=== PATIENT | female | born 1990 | race Caucasian/White ===

== ENCOUNTER 2019-08-28 21:25 | Emergency (ER) | payer OTHER ==
[2019-08-28 21:33] VITALS: BP 126/84
[2019-08-28 22:19] LABS: ABS Basophils 0.1 10^3/ul (0-0.2); ABS Eosinophils 0.1 10^3/ul (0-0.6); ABS Monocytes 0.9 10^3/ul (0-0.8); ABS Neutrophils 7.8 10^3/ul (1.5-7.7); Eosinophil % 0.8 %; Hematocrit 42 % (35-47); Hemoglobin 14.3 g/dL (12.0-16.0); Lymphocyte % 31.2 %; Mean Corpuscular HGB Conc 34 g/dL (31-36); Mean Corpuscular Hemoglobin 31 pg (27-31); Mean Corpuscular Volume 92 fL (80-97); Mean Platelet Volume 7.6 fL (7.4-10.4); Nucleated Red Blood Cells % 0.1; Platelet Count 301 10^3/uL (150-450); Red Blood Count 4.58 10^6 /uL (3.70-4.87); Red Cell Distribution Width 13 % (10-15); White Blood Count 12.9 10^3/uL (3.5-10.8)
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
[2019-08-28 22:36] LABS: ALT 9 U/L (7-52); AST 12 U/L (13-39); Albumin 4.4 g/dL (3.2-5.2); Albumin/Globulin Ratio 1.5 (1-3); Alkaline Phosphatase 56 U/L (34-104); Anion Gap 9 mmol/L (2-11); BUN/Creatinine Ratio 13.2 (8-20); Blood Urea Nitrogen 9 mg/dL (6-24); CO2 Carbon Dioxide 23 mmol/L (22-32); Chloride 104 mmol/L (101-111); EGFR African American 124.7 (>60); Glucose 116 mg/dL (70-100); Potassium 3.4 mmol/L (3.5-5.0); Sodium 136 mmol/L (135-145); Total Protein 7.4 g/dL (6.4-8.9)
[2019-08-28 22:41] LABS: Urine Appearance Cloudy; Urine Bacteria Absent (Absent); Urine Bilirubin Negative (Negative); Urine Blood Negative (Negative); Urine Color Yellow; Urine Glucose Negative (Negative); Urine Ketones Negative (Negative); Urine Nitrite Negative (Negative); Urine Protein Negative (Negative); Urine Red Blood Cell Absent (Absent); Urine Specific Gravity 1.026 (1.010-1.030); Urine Squamous Epithelial Cell Present (Absent); Urine Urobilinogen Negative (Negative); Urine White Blood Cell Trace(0-5/hpf) (Absent)
[2019-08-28 22:47] LABS: Acetaminophen < 15 mcg/mL; Alcohol < 10 mg/dL (<10); Salicylate < 2.50 mg/dL (<30)
[2019-08-28 22:53] LABS: Urine Benzodiazepine Screen Presumptive Positive (None Detect); Urine Opiates Screen None Detected (None Detect)
[2019-08-28 23:03] LABS: TSH (Thyroid Stimulating Horm) 6.76 mcIU/mL (0.34-5.60)
== END 2019-08-29 03:06 | disposition home or self-care (01) ==
LOC: ED 21:25
DX: F32.9 Major depressive disorder, single episode, unspecified (principal); Z79.899 Other long term (current) drug therapy
CPT/HCPCS: 36415; 80053; 80307; 80320; 80329; 81003; 81015; 84443; 85025; 87086; 99283; G0480

== ENCOUNTER 2019-08-29 19:25 | Emergency (ER) | payer OTHER ==
[2019-08-29 20:08] LABS: ABS Eosinophils 0.1 10^3/ul (0-0.6); ABS Lymphocytes 3.9 10^3/ul (1.0-4.8); ABS Monocytes 0.8 10^3/ul (0-0.8); ABS Neutrophils 4.9 10^3/ul (1.5-7.7); Eosinophil % 1.3 %; Hematocrit 43 % (35-47); Hemoglobin 14.6 g/dL (12.0-16.0); Lymphocyte % 40.2 %; Mean Corpuscular HGB Conc 34 g/dL (31-36); Mean Corpuscular Hemoglobin 31 pg (27-31); Mean Corpuscular Volume 92 fL (80-97); Mean Platelet Volume 7.6 fL (7.4-10.4); Nucleated Red Blood Cells % 0.1; Platelet Count 308 10^3/uL (150-450); Red Blood Count 4.64 10^6 /uL (3.70-4.87); Red Cell Distribution Width 13 % (10-15); White Blood Count 9.8 10^3/uL (3.5-10.8)
[2019-08-29 20:25] LABS: ALT 9 U/L (7-52); AST 12 U/L (13-39); Albumin 4.4 g/dL (3.2-5.2); Albumin/Globulin Ratio 1.5 (1-3); Alkaline Phosphatase 56 U/L (34-104); Anion Gap 6 mmol/L (2-11); BUN/Creatinine Ratio 12.2 (8-20); Blood Urea Nitrogen 9 mg/dL (6-24); CO2 Carbon Dioxide 28 mmol/L (22-32); Calcium 9.2 mg/dL (8.6-10.3); Chloride 105 mmol/L (101-111); EGFR African American 113.1 (>60); EGFR Non-African American 93.5 (>60); Glucose 106 mg/dL (70-100); Sodium 139 mmol/L (135-145); Total Protein 7.4 g/dL (6.4-8.9)
[2019-08-29 20:32] LABS: HCG Pregnancy < 0.60 mIU/mL
[2019-08-29 20:45] LABS: Acetaminophen < 15 mcg/mL; Alcohol < 10 mg/dL (<10); Salicylate < 2.50 mg/dL (<30)
[2019-08-29 21:02] LABS: TSH (Thyroid Stimulating Horm) 5.09 mcIU/mL (0.34-5.60)
[2019-08-30 03:00] VITALS: BP 110/67
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
== END 2019-08-30 02:58 | disposition home or self-care (01) ==
LOC: ED 19:25
DX: F32.9 Major depressive disorder, single episode, unspecified (principal); F43.20 Adjustment disorder, unspecified; Z79.899 Other long term (current) drug therapy
CPT/HCPCS: 36415; 80053; 80320; 80329; 84443; 84702; 85025; 99285; G0480

== ENCOUNTER 2019-08-31 12:04 | Inpatient (IN) | payer OTHER ==
--- NOTE | 2019-08-31 12:24 | ED ---
Psychiatric Complaint - HPI Summary HPI Summary: Patient is a 29 y/o F presenting [facility] with [place] for depression. She states that she was evaluated at [facility] two days ago for similar issues and was discharged to home the same day. She was evaluated by her psychiatrist today who recommended that the patient come to [facility] for MHE and possible admission. Patient endorses feelings of worthlessness and hopelessness. She reports that she would not actively attempt to by suicide by states, "Let's just say that if a car happened to not brake, I would not be too sorry". Patient notes that she sleeps 14-15 hours a day and has involuntarily lost around 15 lbs since March. Patient is on Lexapro, Levothyroxine, and Xanax. She has not missed any doses of her medications. Mother is concerned that the patient's TSH is high. Patient does not report any fever, chills, erythema of eyes, sore throat, CP, SOB, cough, abdominal pain, N/V, dysuria, hematuria, myalgia, edema , rash, and dizziness. On triage, pain is rated 0/10, nothing is noted to aggravate Sx, nothing is noted to alleviate Sx. Home medications and allergies are reviewed. - History Of Current Complaint Chief Complaint: EDMentalHealth Time Seen by Provider: 08/31/19 12:17 Hx Obtained From: Patient Onset/Duration: Still Present Timing: Constant Severity Currently: None - pain denied Character: Depressed Aggravating Factor(s): Nothing Alleviating Factor(s): Nothing Associated Signs And Symptoms: Positive: Sleep Disturbance - Allergies/Home Medications Allergies/Adverse Reactions: Allergies Allergy/AdvReac Type Severity Reaction Status Date / Time No Known Allergies Allergy Verified 08/28/19 21:33 PMH/Surg Hx/FS Hx/Imm Hx Endocrine/Hematology History: Reports: Hx Thyroid Disease Denies: Hx Anticoagulant Therapy Respiratory History: Denies: Hx Asthma Sensory History: Denies: Hx Legally Blind, Hx Deafness Opthamlomology History: Denies: Hx Legally Blind Psychiatric History: Denies: Hx Eating Disorder, Hx of Violent Episodes Against Others Infectious Disease History: No Infectious Disease History: Denies: Traveled Outside the [place] in Last 30 Days - Family History Known Family History: Positive: Other - no FMHx of depression - Social History Alcohol Use: Rare Hx Substance Use: No Substance Use Type: Reports: None Hx Tobacco Use: No Smoking Status (MU): Never Smoked Tobacco Review of Systems Constitutional: Other - positive - sleeping 14-15 hours daily, involuntary weight loss Negative: Fever, Chills Negative: Erythema Negative: Sore Throat Negative: Chest Pain Negative: Shortness Of Breath, Cough Negative: Abdominal Pain, Vomiting, Nausea Negative: dysuria, hematuria Negative: Myalgia, Edema Negative: Rash Neurological: Other - negative - dizziness Positive: Depressed All Other Systems Reviewed And Are Negative: Yes Physical Exam - Summary Physical Exam Summary: Constitutional: Well-developed, Well-nourished, Alert. (-) Distressed Skin: Warm, Dry HENT: Normocephalic; Atraumatic Eyes: Conjunctiva normal Neck: Musculoskeletal ROM normal neck. (-) JVD, (-) Stridor, (-) Tracheal deviation Cardio: Rhythm regular, rate normal, Heart sounds normal; Intact distal pulses; The pedal pulses are 2+ and symmetric. Radial pulses are 2+ and symmetric. (-) Murmur Pulmonary/Chest wall: Effort normal. (-) Respiratory distress, (-) Wheezes, (-) Rales Abd: Soft, (-) tenderness, (-) Distension, (-) Guarding, (-) Rebound Musculoskeletal: (-) Edema Lymph: (-) Cervical adenopathy Neuro: Alert, Oriented x3 Psych: Flat Affect. Triage Information Reviewed: Yes Vital Signs On Initial Exam: Initial Vitals Temp Pulse Resp BP Pulse Ox 98.6 F 76 16 121/80 98 08/31/19 12:11 08/31/19 12:11 08/31/19 12:11 08/31/19 12:11 08/31/19 12:11 Vital Signs Reviewed: Yes Diagnostics - Vital Signs Vital Signs Temp Pulse Resp BP Pulse Ox 08/31/19 12:11 98.6 F 76 16 121/80 98 - Laboratory Result Diagrams: 08/31/19 12:37 08/31/19 12:37 Lab Statement: Any lab studies that have been ordered have been reviewed, and results considered in the medical decision making process. Course/Dx - Course Course Of Treatment: Patient is a 29 y/o F presenting to [facility] with mother for depression. She states that she was evaluated at [facility] two days ago for similar issues and was discharged to home the same day. She was evaluated by her psychiatrist today who recommended that the patient come to [facility] for MHE and possible admission. Patient endorses feelings of worthlessness and hopelessness. She reports that she would not actively attempt to by suicide by states, "Let's just say that if a car happened to not brake, I would not be too sorry". Patient notes that she sleeps 14-15 hours a day and has involuntarily lost around 15 lbs since March. Patient is on Lexapro, Levothyroxine, and Xanax. She has not missed any doses of her medications. Mother is concerned that the patient's TSH is high. Flat affect is noted on physical exam. Bloodwork was obtained. Abnormal values include MCH 32, Free T4 1.15. TSH was 2.39. UA showed 3+ blood, trace WBC, 2+ RBC, and squamous epith cells present. Urine tox showed presumptive positive for benzodiazepines. Patient was medically cleared for MHE. worker Emely reports that the patient' s case had been reviewed by Dr. Starks, patient will be admitted to [facility] under 939 status. - Differential Dx/Clinical Impression Provider Diagnosis: Depressive disorder - Physician Notifications Discussed Care Of Patient With: Sunday Starks Time Discussed With Above Provider: 16:48 Instructed by Provider To: Other - worker Emely reports that the patient's case had been reviewed by Dr. Starks, patient will be admitted to [facility] under 939 status. Discharge ED - Sign-Out/Discharge Documenting (check all that apply): Patient Departure - admit All imaging exams completed and their final reports reviewed: No Studies Patient Received Moderate/Deep Sedation with Procedure: No - Discharge Plan Condition: Stable Disposition: PS[facility]CHIATRIC FACILITY-[facility] - Attestation Statements Document Initiated by Scribe: Yes Documenting Scribe: BABATUNDE ESPARZA Provider For Whom Scribe is Documenting (Include Credential): SYDNEE SEE MD Scribe Attestation: BABATUNDE [place], scribed for SYDNEE SEE MD on 08/31/19 at 1753. Status of Scribe Document: Ready
[2019-08-31 12:46] LABS: ABS Basophils 0.1 10^3/ul (0-0.2); ABS Eosinophils 0.1 10^3/ul (0-0.6); ABS Lymphocytes 2.2 10^3/ul (1.0-4.8); ABS Monocytes 0.6 10^3/ul (0-0.8); ABS Neutrophils 5.4 10^3/ul (1.5-7.7); Eosinophil % 1.3 %; Hematocrit 42 % (35-47); Hemoglobin 14.3 g/dL (12.0-16.0); Lymphocyte % 26.5 %; Mean Corpuscular HGB Conc 34 g/dL (31-36); Mean Corpuscular Hemoglobin 32 pg (27-31); Mean Corpuscular Volume 93 fL (80-97); Mean Platelet Volume 7.6 fL (7.4-10.4); Platelet Count 307 10^3/uL (150-450); Red Blood Count 4.48 10^6 /uL (3.70-4.87); Red Cell Distribution Width 13 % (10-15); White Blood Count 8.3 10^3/uL (3.5-10.8)
[2019-08-31 12:55] LABS: Urine Appearance Cloudy; Urine Bacteria Absent (Absent); Urine Bilirubin Negative (Negative); Urine Blood 3+ (Negative); Urine Color Yellow; Urine Glucose Negative (Negative); Urine Ketones Negative (Negative); Urine Nitrite Negative (Negative); Urine Protein Negative (Negative); Urine Red Blood Cell 2+(6-10/hpf) (Absent); Urine Squamous Epithelial Cell Present (Absent); Urine Urobilinogen Negative (Negative); Urine White Blood Cell Trace(0-5/hpf) (Absent)
[2019-08-31 13:05] LABS: ALT 10 U/L (7-52); AST 17 U/L (13-39); Albumin 4.5 g/dL (3.2-5.2); Albumin/Globulin Ratio 1.6 (1-3); Alkaline Phosphatase 56 U/L (34-104); Anion Gap 4 mmol/L (2-11); BUN/Creatinine Ratio 14.7 (8-20); Blood Urea Nitrogen 11 mg/dL (6-24); CO2 Carbon Dioxide 29 mmol/L (22-32); Calcium 9.2 mg/dL (8.6-10.3); Chloride 102 mmol/L (101-111); EGFR African American 111.3 (>60); Globulin 2.8 g/dL (2-4); Glucose 100 mg/dL (70-100); Sodium 135 mmol/L (135-145); Total Protein 7.3 g/dL (6.4-8.9)
[2019-08-31 13:34] LABS: Acetaminophen < 15 mcg/mL; Alcohol < 10 mg/dL (<10); Salicylate < 2.50 mg/dL (<30)
[2019-08-31 13:49] LABS: TSH (Thyroid Stimulating Horm) 2.39 mcIU/mL (0.34-5.60)
[2019-08-31 13:51] LABS: Free T4 1.15 ng/dL (0.61-1.12)
[2019-08-31 14:17] LABS: Urine Benzodiazepine Screen Presumptive Positive (None Detect); Urine Opiates Screen None Detected (None Detect)
[2019-08-31] MEDS ORDERED: Acetaminophen TAB* 325 MG PO PRN (15:46)
[2019-08-31] MEDS ORDERED: Al Hydrox/Mg Hydrox/Simet LIQ* 30 ML UDC PO PRN (15:46)
[2019-08-31] MEDS ORDERED: chlorproMAZINE TAB* 50 MG PO PRN (15:48)
[2019-09-01 08:19] LABS: HDL Cholesterol 36.2 mg/dL
[2019-09-01] MEDS: Levothyroxine TAB* 112 MCG TAB PO SCH (08:59)
[2019-09-01] MEDS ORDERED: Influenza VAC *QUAD* 2019-20* 0.5 ML SYRINGE IM ONE (09:00)
[2019-09-01] MEDS ORDERED: Escitalopram * 20 MG TABLET PO SCH (09:00)
--- NOTE | 2019-09-01 11:14 | HP ---
H&P (Free Text) History and Physical: Justification for admission: Immediate Safety. CC " I can not believe she would do this to me" The patient was brought to [facility] after expressing suicidal ideation to her mental health provider. Denied access to firearms or stockpiles of medications. She reported having adequate sleep and diminished appetite with 40lbs weight loss. The patient denied homicidal ideation intent or plan. The patient denied auditory and/ or visual hallucinations. She reported excessively picking at her skin to the point of making scars. She expressed that is something ended her life that she would be happy and gave the example of being hit by a car. She reported feeling depressed since her and her in March. She reported hanging out with a friend who turned on her and accused her of sexual harassment and stalking. She reported that [facility] is failing to investigate any warrant to her accusers claims. 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 MDD Reported feeling depressed with diminished interests which were found to be enjoyable in the past. Reported having crying spells , feeling empty inside, feelings of hopelessness , and worthlessness. 40lbs unintentional weight loss and diminished appetite. She reported thoughts that she would be better off . Anxiety Denied having symptoms of anxiety such as having times where heart feels that it is beating out of chest , sweaty palms, or shallow breathing. Denied having uncomfortable or intrusive thoughts. Denied feeling restless, high strung, or worrying too much most of the time. Bipolar Denied symptoms of radha such as having many ideas at once. Denied increased talkativeness where no one can interrupt. Denied feeling irritable most of the time while having an persistent abundance of energy most of the day without the use of energy drinks, stimulants, or recreational drug use. Denied an increase in intensity in goal directed activities. Denied having the decreased need to sleep for days , having prolonged elevated mood , or feeling on top of the world. Denied impulsive risky sexual encounters. Denied spending money recklessly , going on spending sprees wiping out savings. Denied impulsively traveling out of town or country, having super sorensen, and unrealistic wealth or fame. Psychosis Does not endorse hearing things that other people do not hear or seeing things other people do not see. Denied feeling that TV is making references. Denied feeling that people are spying , following , or reading their thoughts. Phobias: Patient denied having excessive fear of a particular thing or situation. Eating disorders: Patient denied having excessive eating habits or feelings of guilt after eating. Denied repeated episodes of self induced vomiting after eating. PTSD Denied flashbacks, nightmares and avoidance of a prior traumatic event. PAST PSYCHIATRIC HISTORY: Prior Diagnosis : Depression History of past Psychiatric Hospitalizations: No prior psychiatric admission. History of past suicide/homicide attempts : Denied past suicide attempts or self injurious behaviors. No history of violence. Outpatient follow-up: Emily Landa NP Medications: Past trials of medications include lexapro 20mg daily for depression. Guardianship: None. FAMILY HISTORY: - Suicide: Denied family history of suicide. - Mental illness: Denied a history of mental health in immediate family members. - Substance abuse: Denied substance abuse among family members. SUBSTANCE ABUSE HISTORY: Denied using alcohol, tobacco, heroin cocaine or other illicit substances. Denied abusing pills for recreational use. Denied past Substance abuse treatment. SOCIAL HISTORY: - Denied a history of childhood physical and or sexual abuse Born in [facility] and mostly raised by her mother. 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 No history of special education. - Living situation: Currently lives in [facility] - Relationship: and has no children. - Legal history: Denied - service history: Denied PAST MEDICAL HISTORY: Graves disease with past radiation treatment of her thyroid. - Allergies: Denied drug or other allergies. Physical Exam: Please see ED note Mental Status Exam on Admission APPEARANCE : 29 year old transgender male to female ppears stated age. Patient appears disheveled with poor hygiene and grooming. BEHAVIOR: Cooperative , calm EYE CONTACT: Fair PSYCHOMOTOR ACTIVITY: No psychomotor agitation or retardation. MOVEMENTS: No abnormal movements observed. SPEECH : Normal rate, rhythm, volume and tone. MOOD : "Upset " AFFECT : Type is depressed, Range is blunted Mood Congruent THOUGHT PROCESS: Formulated and organized in a logical, linear goal directed manner. Some perseveration THOUGHT CONTENT: preoccupation about being accused of sexual harassment PERCEPTION: No current auditory or visual hallucinations. Doesnt appear to be responding to internal cues. No evidence of depersonalization , de-realization, or illusions SUICIDALITY + suicidal ideation HOMICIDALITY Denied homicidal ideation, intent or plan. Insight/judgment: Poor insight and judgment ORIENTATION: Oriented to self, location, and time. Diagnosis on Admission: Major depressive disorder, severe. Excoriation Disorder. Assessment: 29 year old transgender male to female with history of depression came to the hospital with suicidal ideation following a incident at school and was admitted to the BSU at [facility]. Plan #Admit to BSU, Q15 minute observation. Start regular diet. Encourage participation in activities on the milieu. #Patient evaluated in ED and was determined by the emergency room Physician to be medically fit for admission to the BSU. # Justification for Admission: For immediate safety per outlined in the [place] Mental Hygiene Code. # The patient requires psychiatric inpatient admission at this time to assure safety, receive treatment and work toward stabilization. # Labs ordered: CBC, CMP, UDS, TSH, HBA1c, TSH, Toxicology screen, Urine analysis, and lipid profile. # Obtain collateral information once release is signed. # Collaboration with Sales Representative Bharati Boogie # Increase lexapro to 30mg daily # Start naltrexone 50mg daily for skin picking. Patient not on opiates. # Patient signed release for [employer] as well as to have permission to contact administration in regards to title 9 case. #Goals before discharge include: To eliminate/ reduce suicidal ideation Tentative Discharge: Pending psychiatric stabilization The risks, benefits, and alternative treatment options were discussed as well as the risks of refusing treatment. After this discussion and an acknowledgement of this understanding was made. A risk/ benefit assessment of treatment was considered and discussed with the patient. When comparing the risks of treatment with the dangers of not receiving treatment, the benefits of treatment outweigh the treatment risks at this time. Risks of allergy, suicidal ideation, behavioral changes, dystonia, rashes, electrolyte imbalances, movement disorders, cardiac conduction changes, serotonin syndrome, metabolic risks were among some of the risks discussed. Sodium 135 mmol/L (135-145) 08/31/19 12:37 Potassium 4.0 mmol/L (3.5-5.0) 08/31/19 12:37 BUN 11 mg/dL (6-24) 08/31/19 12:37 Creatinine 0.75 mg/dL (0.51-0.95) 08/31/19 12:37 Hemoglobin A1c 5.4 % (4.0-5.6) 09/01/19 07:27 Calcium 9.2 mg/dL (8.6-10.3) 08/31/19 12:37 AST 17 U/L (13-39) 08/31/19 12:37 ALT 10 U/L (7-52) 08/31/19 12:37 Triglycerides 124 mg/dL 09/01/19 07:27 Cholesterol 208 mg/dL 09/01/19 07:27 LDL Cholesterol 147 mg/dL 09/01/19 07:27 Acetaminophen (Tylenol Tab*) 650 mg PO Q4H PRN PRN Reason: for pain; or Temp >101 F Al Hydrox/Mg Hydrox/Simethicone (Maalox Plus*) 30 ml PO Q4H PRN PRN Reason: INDIGESTION Escitalopram Oxalate (Lexapro *) 30 mg PO DAILY [facility] Levothyroxine Sodium (Synthroid Tab*) 112 mcg PO DAILY@0600 [facility] Last Admin: 09/01/19 08:59 Dose: 112 mcg Naltrexone HCl (Naltrexone Tab*) 50 mg PO DAILY [facility]; Protocol
[2019-09-01] MEDS: Naltrexone TAB* 50 MG TAB PO SCH (14:23)
[2019-09-02] MEDS: Naltrexone TAB* 50 MG TAB PO SCH (08:39)
[2019-09-02] MEDS: Levothyroxine TAB* 112 MCG TAB PO SCH (08:39)
[2019-09-02] MEDS ORDERED: Escitalopram * 10 MG TAB PO SCH (09:00)
--- NOTE | 2019-09-02 13:56 | PN ---
Subjective - Subjective Date of Service: 09/02/19 Service Type: 63224 Hosp care 35 min high complexity Subjective: Nursing Report: Patient was visible on unit, no behavioral incidents. Slept overnight. Attending group activities. CC: "ok Patient was seen and evaluated today in the common room. The patient reported she feels safe on the unit and is interacting with peers. She reported having an adequate appetite and sleep. The patient reports attending and participating in day groups. Per nursing no behavioral issues or overnight events reported. Patient reported that she was feeling a bit panicky. She feels less emotionally connected to the incident at [facility]. Objective - General Observations Appears Stated Age: Yes Stature: WNL Posture: WNL Eye Contact: Average Behavior/Activity: Accelerated - Interaction Observations Attitude Towards Examiner: Cooperative Stated Mood: Dysphoric Affect: Blunted Speech Pattern/Tone: Clear Thought Process: Coherent Thought Content: Preoccupation/Ruminations Thought Process: Lethality: Passive Wish Hallucination Type: None Delusion Type: None - Cognitive Function Orientation: A&O x 4 Level of Consciousness: Awake - Medication Compliance Cooperative with Inpatient Medication Regimen: Yes - Group Participation Participates in Group Activities: Yes Assessment - Assessment Merits Inpatient Hospitalization: For Immediate Safety Clinical Impression: 29 year old transgender male to female with history of depression came to the hospital with suicidal ideation following a incident at school and was admitted to the BSU at [facility]. Plan - Plan Treatment Plan: Name: OSMAN ACKERMAN Birthdate: 1990 [id number] Plan #Q30 minute observation. # The patient requires psychiatric inpatient admission at this time to assure safety, receive treatment and work toward stabilization. # Obtain collateral information once release is signed. # Collaboration with Nailing Machine Feeder Bharati Boogie # Increase lexapro to 30mg daily and change to 20mg the following day. # Continue naltrexone 50mg daily for skin picking. Patient not on opiates. Start abilify 2mg daily for mood # Patient signed release for [facility] as well as to have permission to contact administration in regards to title 9 case. Sodium 135 mmol/L (135-145) 08/31/19 12:37 Potassium 4.0 mmol/L (3.5-5.0) 08/31/19 12:37 BUN 11 mg/dL (6-24) 08/31/19 12:37 Creatinine 0.75 mg/dL (0.51-0.95) 08/31/19 12:37 Hemoglobin A1c 5.4 % (4.0-5.6) 09/01/19 07:27 Calcium 9.2 mg/dL (8.6-10.3) 08/31/19 12:37 AST 17 U/L (13-39) 08/31/19 12:37 ALT 10 U/L (7-52) 08/31/19 12:37 Triglycerides 124 mg/dL 09/01/19 07:27 Cholesterol 208 mg/dL 09/01/19 07:27 LDL Cholesterol 147 mg/dL 09/01/19 07:27 Vital Signs Temp Pulse Resp BP Pulse Ox 97.7 F 71 16 117/74 99 09/02/19 07:48 09/02/19 07:48 09/02/19 13:09 09/02/19 07:48 09/02/19 07:48 Continued Medication Management: Continue Outpt Medication Medications: Current Medications Acetaminophen (Tylenol Tab*) 650 mg PO Q4H PRN PRN Reason: for pain; or Temp >101 F Al Hydrox/Mg Hydrox/Simethicone (Maalox Plus*) 30 ml PO Q4H PRN PRN Reason: INDIGESTION Escitalopram Oxalate (Lexapro *) 30 mg PO DAILY [facility] Last Admin: 09/02/19 08:40 Dose: 30 mg Levothyroxine Sodium (Synthroid Tab*) 112 mcg PO DAILY@0600 [facility] Last Admin: 09/02/19 08:39 Dose: 112 mcg Naltrexone HCl (Naltrexone Tab*) 50 mg PO DAILY [facility]; Protocol Last Admin: 09/02/19 08:39 Dose: 50 mg - Discharge Plan Discharge Plan: Inpatient Hospitalization Outpatient Program: Counseling/Psych Services at [facility]
[2019-09-02] MEDS ORDERED: ARIPiprazole TAB* 2 MG PO ONE (14:03)
[2019-09-03] MEDS: ARIPiprazole TAB* 2 MG PO SCH (09:01)
[2019-09-03] MEDS: Escitalopram * 20 MG TABLET PO SCH (09:01)
[2019-09-03] MEDS: Levothyroxine TAB* 112 MCG TAB PO SCH (09:02)
[2019-09-03] MEDS: Naltrexone TAB* 50 MG TAB PO SCH (09:02)
--- NOTE | 2019-09-03 10:39 | PN ---
Subjective - Subjective Date of Service: 09/03/19 Service Type: 04425 Hosp care 35 min high complexity Subjective: Nursing Report: Patient was visible on unit, no behavioral incidents. Slept overnight. Attending group activities. CC: "I need to keep my mind occupied Patient was seen and evaluated today in the common room. The patient reported she feels bored because she doesn't have much to keep her stimulated. She reported having slight tremor in both hands that started yesterday afternoon. Her mother is meeting with title 9 and her ocean export agent today. The patient reported having a dream that she as a cartoon character. The patient wishes to have the allegations that were brought against checked for validity before being regarded as being true. The patient reported feeling irritable yesterday afternoon. She reported having an adequate appetite and sleep. The patient reports attending and participating in day groups. Per nursing no behavioral issues or overnight events reported. Objective - General Observations Appearance: Disheveled Appears Stated Age: Yes Posture: Slumped Eye Contact: Average Behavior/Activity: WNL - Interaction Observations Attitude Towards Examiner: Cooperative Stated Mood: Dysphoric Affect: Blunted Speech Pattern/Tone: Clear Thought Process: Goal Directed Thought Content: Self-Deprecatory Thought Process: Lethality: Passive Wish Hallucination Type: None Delusion Type: None - Cognitive Function Orientation: A&O x 4 Level of Consciousness: Awake Cognition: WNL - Medication Compliance Cooperative with Inpatient Medication Regimen: Yes - Group Participation Participates in Group Activities: Yes Assessment - Assessment Merits Inpatient Hospitalization: For Immediate Safety Clinical Impression: 29 year old transgender male to female with history of depression came to the hospital with suicidal ideation following a incident at school and was admitted to the BSU at [facility]. Plan - Plan Treatment Plan: Name: OSMAN ACKERMAN Birthdate: 1990 [id number] Plan #Q30 minute observation with staff pass and computer # The patient requires psychiatric inpatient admission at this time to assure safety, receive treatment and work toward stabilization. # Obtain collateral information once release is signed. # Collaboration with Geriatric Nurse Bharati Boogie # Continue lexapro 20mg daily # Continue naltrexone 50mg daily for skin picking. Patient not on opiates. # Continue abilify 2mg daily for mood # Patient signed release for [place]. # App[facility]ment with Poly Bowie [facility]. Sodium 135 mmol/L (135-145) 08/31/19 12:37 Potassium 4.0 mmol/L (3.5-5.0) 08/31/19 12:37 BUN 11 mg/dL (6-24) 08/31/19 12:37 Creatinine 0.75 mg/dL (0.51-0.95) 08/31/19 12:37 Hemoglobin A1c 5.4 % (4.0-5.6) 09/01/19 07:27 Calcium 9.2 mg/dL (8.6-10.3) 08/31/19 12:37 AST 17 U/L (13-39) 08/31/19 12:37 ALT 10 U/L (7-52) 08/31/19 12:37 Triglycerides 124 mg/dL 09/01/19 07:27 Cholesterol 208 mg/dL 09/01/19 07:27 LDL Cholesterol 147 mg/dL 09/01/19 07:27 Vital Signs Temp Pulse Resp BP Pulse Ox 97.7 F 71 16 117/74 99 09/02/19 07:48 09/02/19 07:48 09/02/19 20:00 09/02/19 07:48 09/02/19 07:48 Continued Medication Management: Continue Outpt Medication Medications: Current Medications Acetaminophen (Tylenol Tab*) 650 mg PO Q4H PRN PRN Reason: for pain; or Temp >101 F Al Hydrox/Mg Hydrox/Simethicone (Maalox Plus*) 30 ml PO Q4H PRN PRN Reason: INDIGESTION Aripiprazole (Abilify Tab*) 2 mg PO DAILY [facility] Last Admin: 09/03/19 09:01 Dose: 2 mg Escitalopram Oxalate (Lexapro *) 20 mg PO DAILY [facility] Last Admin: 09/03/19 09:01 Dose: 20 mg Levothyroxine Sodium (Synthroid Tab*) 112 mcg PO DAILY@0600 [facility] Last Admin: 09/03/19 09:02 Dose: 112 mcg Naltrexone HCl (Naltrexone Tab*) 50 mg PO DAILY [facility]; Protocol Last Admin: 09/03/19 09:02 Dose: 50 mg - Discharge Plan Discharge Plan: Inpatient Hospitalization Outpatient Program: Counseling/Psych Services at [place]
--- NOTE | 2019-09-03 13:27 | CONS ---
PSYCHOLOGICAL REPORT: DATE OF CONSULT: 09/02/19 PROCEDURE CODE: [id number] REASON FOR REFERRAL: The patient was referred for personality testing secondary to diagnostic interest as well as concerns regarding possible lethality. TESTS ADMINISTERED: Antonette completed the [place] Multiphasic Personality Inventory-2 (MMPI-2) and was given feedback in individual conversation. She was also seen in the context of a cognitive behavioral group psychotherapy led by this creative services writer on 3 occasions to date. 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 She describes a reluctance to finish her final chapter secondary to how that would affect her visa status, describing that she is currently funded through [employer] which will cover her status on her visa as well. 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 Antonette describes experiencing passive suicidal rumination secondary to interpersonal conflict with a friend of hers who alleged that Antonette began sexually harassing her and stalking her. 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 This of course is a shock to her as she feels she has never experienced any similar such trauma. Regardless her sense of alienation regarding loss of a friendship has exacerbated her already existing depressive symptoms secondary to separation and anticipated divorce from her who lives in [place]. Antonette describes expressing some depressive features other than suicidal rumination such as anhedonia and diminished energy and interest in attending to her responsibilities and interest. She describes not having worked productively in the past few weeks, which she finds to be uncharacteristic. She denies engaging in any impulsive behaviors but simply endorses feeling distraught about the accusation this former friend of hers has made towards her and how that impacts her professional relationships with other professors at [employer]. She is very upset about prospects of how to manage this and remain on campus describing how she was told to not approach her former friend if she runs into her by coincidence and how this restricts her access to her own lab as well as uses of bathroom down the [address] from her lab. Antonette describes further that she would be horrified to run into her in public such as in a restaurant where she would have to abruptly leave if her friend appear. Discussion addressed the possibility of taking a medical leave, which she quickly discounted and enumerated the various reasons how this would interfere with personal and professional development. Antonette identifies as a male to female transgendered person who has never experienced any prior disciplinary difficulties in any context. In trying to account for her former friends behavior she described her friend is going from female to male transgender, which was an issue that they bonded over, offering that her friend had recently received testosterone shots, which she wonders if this had a negative impact on her perceptions. TEST RESULTS: Antonette provides a valid protocol on this administration of the MMPI- 2 despite having elevated 3 emotional duress scales on the validity indicators. Her elevations on the validity indices impress as reflecting external duress, which is reflected in her clinical elevations on the depression scale particularly. She also has a slight elevation on the psychopathic deviate scale as well as the masculine feminine scale. Persons with similar code types are described as experiencing some depressive symptomatology and who are likely to endorse to stain for social conformity. Persons who elevate the psychopathic deviate scale in this context are typically described as very independent minded and express their disdain for social conformity and prosocial fashions. This is very common in college oriented people as well. IMPRESSIONS AND RECOMMENDATIONS: Antonette has difficulties with depressive experiences currently impress as being a result of her recent experiences both in regards to loss of her as well as more acutely the loss of this relationship that entails such accusatory and inflammatory prospects. Antonette denied ever having any prior difficulties of any nature regarding arrest or disciplinary actions in the academic context and is quite perplexed and befuddled by her friends accusations. She spontaneously describes having a wealth of evidence, which would refute her ex-friends accounts of events, describing how she was typically with other peers at the times her ex-friend made accusations of inappropriate touching or comments. Antonette currently presents with fair affect it is appropriately variable with discussion. Although, she remains very upset and angry about these events, she expresses prosocial interest in a calm and measured fashion. There are no concerns regarding radha or psychosis and Antonette impresses as being able to make sound decisions presently. DIAGNOSTIC IMPRESSION: Supports a major depressive disorder secondary to the suicidal content of her thoughts and feelings. This impresses as being a reactive experience to relationship losses. Currently, she impresses as low lethality risk secondary to both current and remote historical function. [id number]/[facility] #: [id number] CARMINA
--- NOTE | 2019-09-04 08:19 | DS ---
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 The patient was seen and evaluated before discharge today. The patient reported having adequate appetite and sleep. The patient reported attending and participating in day groups. Per nursing no behavioral issues or overnight events reported. Patient reported tolerating medications without side effects. Justification for admission: Immediate Safety. CC " I can not believe she would do this to me" The patient was brought to [facility] after expressing suicidal ideation to her mental health provider. Denied access to firearms or stockpiles of medications. She reported having adequate sleep and diminished appetite with 40lbs weight loss. The patient denied homicidal ideation intent or plan. The patient denied auditory and/ or visual hallucinations. She reported excessively picking at her skin to the point of making scars. She expressed that is something ended her life that she would be happy and gave the example of being hit by a car. She reported feeling depressed since her and her in March. She reported hanging out with a friend who turned on her and accused her of sexual harassment and stalking. She reported that [facility] is failing to investigate any warrant to her accusers claims. 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 MDD Reported feeling depressed with diminished interests which were found to be enjoyable in the past. Reported having crying spells , feeling empty inside, feelings of hopelessness , and worthlessness. 40lbs unintentional weight loss and diminished appetite. She reported thoughts that she would be better off . Anxiety Denied having symptoms of anxiety such as having times where heart feels that it is beating out of chest , sweaty palms, or shallow breathing. Denied having uncomfortable or intrusive thoughts. Denied feeling restless, high strung, or worrying too much most of the time. Bipolar Denied symptoms of radha such as having many ideas at once. Denied increased talkativeness where no one can interrupt. Denied feeling irritable most of the time while having an persistent abundance of energy most of the day without the use of energy drinks, stimulants, or recreational drug use. Denied an increase in intensity in goal directed activities. Denied having the decreased need to sleep for days , having prolonged elevated mood , or feeling on top of the world. Denied impulsive risky sexual encounters. Denied spending money recklessly , going on spending sprees wiping out savings. Denied impulsively traveling out of town or country, having super sorensen, and unrealistic wealth or fame. Psychosis Does not endorse hearing things that other people do not hear or seeing things other people do not see. Denied feeling that TV is making references. Denied feeling that people are spying , following , or reading their thoughts. Phobias: Patient denied having excessive fear of a particular thing or situation. Eating disorders: Patient denied having excessive eating habits or feelings of guilt after eating. Denied repeated episodes of self induced vomiting after eating. PTSD Denied flashbacks, nightmares and avoidance of a prior traumatic event. PAST PSYCHIATRIC HISTORY: Prior Diagnosis : Depression History of past Psychiatric Hospitalizations: No prior psychiatric admission. History of past suicide/homicide attempts : Denied past suicide attempts or self injurious behaviors. No history of violence. Outpatient follow-up: Emily Landa NP Medications: Past trials of medications include lexapro 20mg daily for depression. Guardianship: None. FAMILY HISTORY: - Suicide: Denied family history of suicide. - Mental illness: Denied a history of mental health in immediate family members. - Substance abuse: Denied substance abuse among family members. SUBSTANCE ABUSE HISTORY: Denied using alcohol, tobacco, heroin cocaine or other illicit substances. Denied abusing pills for recreational use. Denied past Substance abuse treatment. SOCIAL HISTORY: - Denied a history of childhood physical and or sexual abuse Born in [facility] and mostly raised by her mother. 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 No history of special education. - Living situation: Currently lives in [place] - Relationship: and has no children. - Legal history: Denied - service history: Denied PAST MEDICAL HISTORY: Graves disease with past radiation treatment of her thyroid. - Allergies: Denied drug or other allergies. Physical Exam: Please see ED note Mental Status Exam on Admission APPEARANCE : 29 year old transgender male to female ppears stated age. Patient appears disheveled with poor hygiene and grooming. BEHAVIOR: Cooperative , calm EYE CONTACT: Fair PSYCHOMOTOR ACTIVITY: No psychomotor agitation or retardation. MOVEMENTS: No abnormal movements observed. SPEECH : Normal rate, rhythm, volume and tone. MOOD : "Upset " AFFECT : Type is depressed, Range is blunted Mood Congruent THOUGHT PROCESS: Formulated and organized in a logical, linear goal directed manner. Some perseveration THOUGHT CONTENT: preoccupation about being accused of sexual harassment PERCEPTION: No current auditory or visual hallucinations. Doesnt appear to be responding to internal cues. No evidence of depersonalization , de-realization, or illusions SUICIDALITY + suicidal ideation HOMICIDALITY Denied homicidal ideation, intent or plan. Insight/judgment: Poor insight and judgment ORIENTATION: Oriented to self, location, and time. Diagnosis on Admission: Major depressive disorder, severe. Excoriation Disorder. Diagnosis on Discharge: Major depressive disorder, in partial remission. Excoriation Disorder. Condition at the time of discharge: At the time of discharge patient showed improvement of sleep and appetite. The patient was not a danger to self or others. The patient denied suicidal ideation, intent or plan. The patient denied homicidal targets, ideation, intent or plan. This patient participated in psychosocial rehabilitation and gained some insight into problems. The patient gained insight into mental illness, triggers, and treatment. The patient took medication as prescribed. The patient denied side effects of medication and objective signs of side effects were not evident. Therapy Resources were offered to the patient. Patient was given a supply of prescriptions at the time of discharge. The patient plans to attend follow up care with the follow up arrangements that were discussed and put in place. Patient was asked to keep appointments as scheduled, take medication as prescribed, have routine follow up care with their primary care physician and refrain from any use of alcohol or drugs. Objective - General Observations Appearance: Disheveled Appears Stated Age: Yes Stature: WNL Posture: WNL Eye Contact: Average Behavior/Activity: WNL - Interaction Observations Attitude Towards Examiner: Cooperative Stated Mood: Euthymic Affect: Full Speech Pattern/Tone: Appropriate Thought Process: Coherent Perception: WNL Thought Content: WNL Hallucination Type: None Delusion Type: None - Cognitive Function Orientation: A&O x 4 Level of Consciousness: Awake Cognition: WNL - Medication Compliance Cooperative with Inpatient Medication Regimen: Yes - Group Participation Participates in Group Activities: Yes Treatment Course & Assessment Clinical Course & Impression: Hospital course part A: 29 year old transgender female and 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 Hospital course part B: Labs ordered included CBC, CMP, UDS, TSH, HBA1c, TSH, Toxicology screen, Urine analysis, and lipid profile. Labs were reviewed and did not require the need for further evaluation. Vital signs were monitored during the course of admission. MMPI was ordered and indicated elevated scales for depression and external duress. See Dr. Flower report for more details. The patient was admitted to the adult behavioral unit and placed on 15 minute check for safety. At a later time the patient was on Q30 minute observation and staff pass privileges. With those limits being extended, patient was safe on all checks and there were no occurrence of behavioral incidents. The patient did well on the unit and went to groups. Interacted with peers had adequate sleep and regular appetite. Tolerated medication changes without significant side effects. Patient had mild bilateral upper extremity tremor that did not interfere with her daily functioning. Group therapy and services were offered. The risks, benefits, and alternative treatment options were discussed as well as of the risks of refusing treatment. Treatment associated risks discussed. After this discussion made an acknowledgement of this understanding. Follow up care appointments were put in place. The importance of monitoring for metabolic changes was discussed and acknowledgement of this understanding was made. The patient was informed not to abruptly stop or start new medications before consulting with a medical professional. Improvements in patient from the time of admission include: Improved affect, sleep and decrease in anxiety. The patient expressed readiness for discharge home. The patient presents with a broader range of affect, and the absence of depressed mood, delusions, perceptual disturbance. The patient denied suicidal and or homicidal ideation intent or plan. Overall, the patient responded well to inpatient treatment as evidenced by their report of strengthening of coping mechanisms, reduced distress, and more positive outlook on circumstances. Of note there was an improvement of recognizing how emotional state can effect mood and behavior. Safety precautions were put in place which included involving the patient and their family to closely monitor for changes in mental state. In addition, implementing follow up care, screening for the need to remove/securing firearms , weapons and stockpile of medications. Patient/ family instructed to immediately call 911 should any safety concerns arise. AIMS was performed and insignificant for involuntary movement disorders. She was informed of the risks associated with medication in . In the event that she becomes in the future and was advised to talk with her outpatient healthcare provider about starting or stopping medications during . The patient was advised of the 24 hour / 7 days a week availability of the emergency room and to call 911 in the event of an emergency such as being suicidal and/ or homicidal. The patient was informed of the contact information for [facility] Behavioral Services Unit, Suicide Prevention and Crisis Services, National Suicide Prevention Lifeline, [facility], Alcoholics Anonymous, and [facility]. Medications started included resuming lexapro 20mg daily for depression and starting abilify 2mg daily for mood and naltrexone 50mg daily for skin picking. Patient not on opiates and doesnt plan to be on opiate medications. Family meeting took place before discharge. The family confirmed that the patient is at their baseline. At this time both the patient and family are eager for discharge and are in agreement with the discharge plan set forth by the treatment team and can safely receive care in the less restrictive outpatient setting. They were advised on how the days following discharge can be a vulnerable period and to look out for warning signs associated with decompensation and progression of mental illness. They were notified of the resources available in the event these situations arise and confirmed that the patient has no access to firearms or stock piles of medications. The patient expressed that she would like to stay in [place] and contest the allegations brought forth against her, and then plans to go back to [place] with her mother. She does not plan to take a medical leave at this time. She requested a letter stating that she was hospitalized. She reported that the no contact order at [employer] has disrupted her everyday life and has restricted her freedom because she must leave any areas where the other student is present. Patient was provided 2 week supply to mitigate the lethality in the event of a overdose. Patient was not assaultive or a behavioral problem during the course of admission. The patient showed improvement of hygiene and was able to carry out activities of daily living. Patient will be discharged to live at apartment in [place]. Follow up appointment at [facility] and with Emily Zacarias NP Patient informed of follow up appointment times. See more details for follow up care in the discharge plan. Risk factors were mitigated by establishing the patients baseline with close contacts and arranging a family meeting. Implementing precautionary safety measures by confirming no stockpiles of medications and no access to firearms , providing mental health treatment, stabilization of depressive features, arrangement of outpatient continuation of care, as well as provided a supportive care environment and therapy resources during the course of hospitalization. Patient composed and discussed safety plan. Risk factors: , single, history of anxiety, recent emotional stressor. Protective factors: Currently no suicidal ideation, intent or plan. No prior suicide attempts No history of service. Currently no feelings of hopelessness, not in an occupation of social isolation, doesnt have multiple medical conditions, no family history of suicide, doesnt have access to firearms. Doesnt have command hallucinations and or psychotic features at this time. No current substance abuse. No current alcohol abuse. Not an anniversary of a loss of a loved one. Currently future orientated. Patient engaged in treatment and compliant with medication. Sodium 135 mmol/L (135-145) 08/31/19 12:37 Potassium 4.0 mmol/L (3.5-5.0) 08/31/19 12:37 BUN 11 mg/dL (6-24) 08/31/19 12:37 Creatinine 0.75 mg/dL (0.51-0.95) 08/31/19 12:37 Hemoglobin A1c 5.4 % (4.0-5.6) 09/01/19 07:27 Calcium 9.2 mg/dL (8.6-10.3) 08/31/19 12:37 AST 17 U/L (13-39) 08/31/19 12:37 ALT 10 U/L (7-52) 08/31/19 12:37 Triglycerides 124 mg/dL 09/01/19 07:27 Cholesterol 208 mg/dL 09/01/19 07:27 LDL Cholesterol 147 mg/dL 09/01/19 07:27 Merits Inpatient Hospitalization: No Clear for Discharge: Adequate Clinical Respons Discharge Planning - Discharge Planning Discharge Plan: Outpatient Follow Up Outpatient Program: Counseling/Psych Services at [employer] Recommendations for Continuing Care: Medication Management Medications: Current Medications Acetaminophen (Tylenol Tab*) 650 mg PO Q4H PRN PRN Reason: for pain; or Temp >101 F Al Hydrox/Mg Hydrox/Simethicone (Maalox Plus*) 30 ml PO Q4H PRN PRN Reason: INDIGESTION Aripiprazole (Abilify Tab*) 2 mg PO DAILY [facility] Last Admin: 09/03/19 09:01 Dose: 2 mg Escitalopram Oxalate (Lexapro *) 20 mg PO DAILY [facility] Last Admin: 09/03/19 09:01 Dose: 20 mg Levothyroxine Sodium (Synthroid Tab*) 112 mcg PO DAILY@0600 [facility] Last Admin: 09/03/19 09:02 Dose: 112 mcg Naltrexone HCl (Naltrexone Tab*) 50 mg PO DAILY [facility]; Protocol Last Admin: 09/03/19 09:02 Dose: 50 mg Discharge Planning: Prescriptions provided for discharge [x] Yes [] No Follow up care details as per social work arrangements. Patient response to discharge plan: [x] eager for discharge [] agreeable with discharge plan [] ambivalent about discharge [] disagrees with discharge today
[2019-09-04 08:20] VITALS: BP 121/71
[2019-09-04] MEDS: Levothyroxine TAB* 112 MCG TAB PO SCH (09:22)
[2019-09-04] MEDS: Naltrexone TAB* 50 MG TAB PO SCH (09:22)
[2019-09-04] MEDS: Escitalopram * 20 MG TABLET PO SCH (09:22)
[2019-09-04] MEDS: ARIPiprazole TAB* 2 MG PO SCH (09:22)
== END 2019-09-04 11:45 | disposition home or self-care (01) | DRG 885 ==
LOC: ED 12:04 → BSU 15:46
PROVIDERS: ADMIT Psychiatry & Neurology Psychiatry; ATTEND Psychiatry & Neurology Psychiatry
DX: F32.2 Major depressive disorder, single episode, severe without psychotic features (principal); R45.851 Suicidal ideations; F42.4 Excoriation (skin-picking) disorder; F41.9 Anxiety disorder, unspecified; R63.4 Abnormal weight loss; E07.9 Disorder of thyroid, unspecified; Z87.890 Personal history of sex reassignment; Z68.25 Body mass index [BMI] 25.0-25.9, adult; Z23 Encounter for immunization
CPT/HCPCS: 36415; 80053; 80061; 80307; 80320; 80329; 81003; 81015; 83036; 84439; 84443; 85025; 87086; 90686; 96130; 99222; 99233; 99238; 99284; A9270-GY; G0480